=== PATIENT | male | born 1945 | race Caucasian/White ===

== ENCOUNTER 2017-08-28 10:33 | Observation (INO) | payer MEDICARE, OTHER ==
[~2017-08-28] VITALS: Ht 182.9 cm; Wt 117.6 kg
[~2017-08-28 10:33] MED LIST: ADVA500A INH; ASPI325T24 PO; CARV6.25 PO; CITA20TA4 PO; CLOP75 PO; DIOV160T6 PO; DIPH1TAB36 PO; FISH1000 PO; SIMV80TA OR; Saw Palmetto PO; TAB-TAB PO; VITA10002 PO
[2017-08-28 10:54] VITALS: BP 163/88; PULSE 56; RESP 20; TEMP 97.9; O2SAT 95
[2017-08-28] MEDS ORDERED: VITA250T26 PO (10:59)
[2017-08-28] MEDS ORDERED: VITA250T25 PO (10:59)
[2017-08-28] MEDS ORDERED: CITA10TA4 PO (10:59)
[2017-08-28] MEDS ORDERED: CLOP75TA PO (10:59)
[2017-08-28] MEDS ORDERED: CARV6.252 PO (10:59)
[2017-08-28] MEDS ORDERED: FISHCAP4 PO (10:59)
[2017-08-28] MEDS ORDERED: MECL-62 PO (10:59)
[2017-08-28] MEDS ORDERED: RANI150T PO (10:59)
[2017-08-28] MEDS ORDERED: VITATAB25 PO (10:59)
[2017-08-28] MEDS ORDERED: CENTCHW3 (11:09)
[2017-08-28] MEDS ORDERED: CALC1TAB87 PO (11:09)
[2017-08-28] MEDS ORDERED: ASPI81CH CHEW (11:09)
[2017-08-28] MEDS ORDERED: potassium otc PO (11:09)
[2017-08-28] MEDS ORDERED: OCUVTAB PO (11:09)
[2017-08-28] MEDS ORDERED: SAW450CA2 PO (11:09)
[2017-08-28] MEDS ORDERED: SODIUM CHLORID 0.9% 500 ML IV PRN (11:30)
[2017-08-28] MEDS ORDERED: METOPROLOL TARTRATE 25 MG TAB PO PRN (11:30)
[2017-08-28] MEDS ORDERED: LACTATED RINGER'S 1000 ML IV PRN (11:30)
[2017-08-28] MEDS ORDERED: CHLORHEXIDINE GLUCONATE 2 % 1 PACK (2 CLOTHS) TOPICAL PRN (11:30)
[2017-08-28] MEDS ORDERED: POVIDONE IODINE 5% (ANTISEPSIS KIT) 4 APPLICATIONS EACH NARE PRN (11:30)
[2017-08-28] MEDS ORDERED: INSULIN HUMAN REGULAR 1,000 UNITS/10 ML VIAL SQ PRN (11:30)
[2017-08-28 12:00] LABS: BICARBONATE 24.8 MEQ/L (21.0-32.0)
[2017-08-28] MEDS ORDERED: PROPOFOL 200 MG/20 ML AMP IV ONE (12:00)
[2017-08-28] MEDS ORDERED: ONDANSETRON HCL 4 MG/2 ML VIAL IV ONE (12:00)
[2017-08-28] MEDS ORDERED: SODIUM CHLOR 0.9% 1000 ML INJ 1,000 ML IV SCH (12:00)
[2017-08-28] MEDS ORDERED: ceFAZolin 2 GM PREMIX 50 ML IV SCH (12:00)
[2017-08-28] MEDS ORDERED: GLYCOPYRROLATE 1 MG/5 ML SYRINGE IV PUSH ONE (12:00)
[2017-08-28] MEDS ORDERED: ROCURONIUM INJ 50 MG/5 ML SYRINGE IV PUSH ONE (12:00)
[2017-08-28] MEDS ORDERED: NEOSTIGMINE 3 MG/3 ML SYR IV ONE (12:00)
[2017-08-28] MEDS ORDERED: PHENYLEPH/NS 1000 MCG/10 ML SYR IV ONE (12:00)
[2017-08-28] MEDS ORDERED: LIDOCAINE HCL 1% PF 5 ML AMPULE OTHER ONE (12:00)
[2017-08-28] MEDS ORDERED: ePHEDrine/NS 25 MG/5 ML SYR IV ONE (12:00)
[2017-08-28 12:04] LABS: POTASSIUM 4.4 MEQ/L (3.5-5.1)
[2017-08-28] MEDS ORDERED: LIDOCAINE HCL 1% 20 ML VIAL ONE (13:15)
--- NOTE | 2017-08-28 13:39 | EKG ---
Date Performed: 08/28/2017 Time Performed: 11:11:11 PTAGE: 72 years EKG: Sinus rhythm WITH SINUS ARRHYTHMIA BORDERLINE LEFT AXIS DEVIATION MODERATE INTRAVENTRICULAR CONDUCTION DELAY BORD GARCÍA ECG PREVIOUS TRACING : 08/31/2011 14.42 DOCTOR: Jimbo Goins Interpretating Date/Time 08/28/2017 13:38:03
[2017-08-28] MEDS ORDERED: DO NOT ADM ANY ANTICOAGULANT DRUGS PRN (15:26)
--- NOTE | 2017-08-28 17:12 | PD.RAD ---
Post CT Procedure Prog Note Pre Procedure Diagnosis: (1) Left renal mass Post Procedure Diagnosis: (1) Left renal mass Procedure Date: Aug 28, 2017 Supervising Radiologist: Mike Hillman Anesthesia: General Plan of Activity Patient to Unit: PACU Patient Condition: Good See PACS Report for procedural detail/treatment Biopsy Imaging Guidance: CT Side: Left Biopsy Procedure: Kidney (20 gauge core and cryo) Specimen: Core Biopsy Findings: Colon against mass. with saline injection through Bender blunt. Mike Hillman MD Aug 28, 2017 17:12
[2017-08-28] MEDS ORDERED: ACETAMINOPHEN 500 MG CPLT PO PRN (18:15)
[2017-08-28] MEDS ORDERED: MECLIZINE HCL 25 MG TAB PO PRN (18:15)
[2017-08-28] MEDS ORDERED: MORPHINE SULFATE 4 MG/ML INJ IV PUSH PRN (18:15)
[2017-08-28] MEDS ORDERED: PILL SPLITTER OTHER PRN (19:15)
[2017-08-28 20:00] VITALS: BP 150/73; PULSE 62; RESP 18; TEMP 97.8; O2SAT 97
[2017-08-28] MEDS: oxyCODONE/ACETAMINOPHEN 5 MG/325 MG TAB PO PRN (20:47)
[2017-08-28 22:05] LABS: AUTOMATED NEUTROPHIL # 7.6 TH/MM3 (1.8-7.7); BASOPHIL % 0.2 % (0.0-2.0); EOSINOPHIL % 0.4 % (0.0-4.0); HEMATOCRIT 41.2 % (39.0-51.0); HEMO FLAGS DIFF FINAL; LYMPH % 12.4 % (9.0-44.0); LYMPHOCYTE # 1.2 TH/MM3 (1.0-4.8); MEAN CELL VOLUME 90.1 FL (80.0-100.0); MEAN CORPUSCULAR HEMOGLOBIN 30.3 PG (27.0-34.0); MEAN CORPUSCULAR HGB CONC 33.7 % (32.0-36.0); MONO % 6.3 % (0.0-8.0); NEUT % 80.7 % (16.0-70.0); PLATELET COUNT 224 TH/MM3 (150-450); RED BLOOD COUNT 4.58 MIL/MM3 (4.50-5.90); RED CELL DISTRIBUTION WIDTH 14.7 % (11.6-17.2); WHITE BLOOD COUNT 9.4 TH/MM3 (4.0-11.0)
[2017-08-29] VITALS: BP 120/55; PULSE 57; RESP 20; TEMP 98.3; O2SAT 94
--- NOTE | 2017-08-29 00:15 | HHI.HP ---
HPI Service [facility] Primary Care Physician Non-Staff Admission Diagnosis Diagnoses: Chief Complaint: Post procedure observation Travel History International Travel<30 Days: No Contact w/Intl Traveler <30 Da: No Traveled to Known Affected Are: No History of Present Illness Patient was seen this morning on 08/29/2017 around 9:30AM. Mr. Gunter is a 72 year old male with a history of hypertension, Prostate cancer, CAD s/p 3 stents who underwent left renal biopsy and cryoablation on by interventional radiology. Patient was admitted for observation to address any post-procedure issues, pain management. Since 2008, patient has been under imaging surveillance for a slow growing mass located posterolaterally in the inferior left renal pole. 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 At the time of this interview, patient is doing well. No significant pain from left flank area. However, he reports a right sided chest discomfort, pressure like sensation. He denies any nausea, vomiting, diaphoresis. No radiation of chest pain. He reports that recently, at home he is making a shade and has been using right upper extremity quite a bit. Review of Systems Except as stated in HPI: all other systems reviewed are Neg Past Family Social History Past Medical History CAD s/p 3 stents Prostate cancer Past Surgical History Back surgery Foot surgery Allergies: Coded Allergies: No Known Allergies (Verified , 08/28/17) Family History Mother and father had DM, Heart disease. Social History Denies using tobacco or illicit drugs. Drinks alcohol socially. Physical Exam Vital Signs Vital Signs Date Time Temp Pulse Resp B/P (MAP) Pulse Ox O2 Delivery O2 Flow Rate FiO2 08/28/17 20:55 Room Air 08/28/17 20:00 97.8 62 18 150/73 (98) 97 08/28/17 17:00 97.5 61 14 141/65 (90) 95 Room Air 08/28/17 16:30 62 14 125/62 (83) 97 Room Air 08/28/17 16:15 65 18 127/59 (81) 95 Nasal Cannula 2 08/28/17 16:00 66 18 120/56 (77) 96 Nasal Cannula 2 08/28/17 15:45 69 18 114/55 (74) 96 Nasal Cannula 2 08/28/17 15:31 97.7 71 18 106/51 (69) 97 Nasal Cannula 2 08/28/17 11:03 95 Room Air 08/28/17 10:54 97.9 56 20 163/88 (113) 95 Physical Exam GENERAL: This is a well-nourished, well-developed patient, in no apparent distress. SKIN: No rashes, ecchymoses or lesions. Warm and dry. HEAD: Atraumatic. Normocephalic. No temporal or scalp tenderness. EYES: Pupils equal round and reactive. No injection or drainage. ENT: Nose without bleeding, purulent drainage or septal hematoma. Airway patent. NECK: Trachea midline. No lymphadenopathy. Supple, nontender, no meningeal signs. CARDIOVASCULAR: Regular rate and rhythm without murmurs, gallops, or rubs. No JVD. No chest wall tenderness on palpation. RESPIRATORY: Clear to auscultation. Breath sounds equal bilaterally. No wheezes , rales, or rhonchi. GASTROINTESTINAL: Abdomen soft, non-tender, nondistended. No guarding. Left flank area looks unremarkable. Biopsy area is covered with dressing. MUSCULOSKELETAL: Extremities without clubbing, cyanosis, or edema. NEUROLOGICAL: Awake and alert. Cranial nerves II through XII intact. No focal neurological deficits. Normal speech. Laboratory Laboratory Tests Test 08/28/17 11:08 08/28/17 21:49 Blood Urea Nitrogen 13 Creatinine 0.64 Random Glucose 92 Calcium Level 8.6 Sodium Level 140 Potassium Level 4.4 Chloride Level 109 Carbon Dioxide Level 24.8 Anion Gap 6 Estimat Glomerular Filtration Rate 123 White Blood Count 9.4 Red Blood Count 4.58 Hemoglobin 13.9 Hematocrit 41.2 Mean Corpuscular Volume 90.1 Mean Corpuscular Hemoglobin 30.3 Mean Corpuscular Hemoglobin Concent 33.7 Red Cell Distribution Width 14.7 Platelet Count 224 Mean Platelet Volume 7.9 Neutrophils (%) (Auto) 80.7 Lymphocytes (%) (Auto) 12.4 Monocytes (%) (Auto) 6.3 Eosinophils (%) (Auto) 0.4 Basophils (%) (Auto) 0.2 Neutrophils # (Auto) 7.6 Lymphocytes # (Auto) 1.2 Monocytes # (Auto) 0.6 Eosinophils # (Auto) 0.0 Basophils # (Auto) 0.0 CBC Comment DIFF FINAL Differential Comment Result Diagram: 08/28/17 2149 08/28/17 1108 Imaging Last Impressions Chest X-Ray 08/29/17 0000 Signed Impressions: Service Date/Time: August 10:35 - CONCLUSION: No acute disease. No significant change has occurred. Dong Ayala MD Caprintheresa VTE Risk Assessment Caprini VTE Risk Assessment: No/Low Risk (score <= 1) Caprini Risk Assessment Model Point Value = 1 Point Value = 2 Point Value = 3 Point Value = 5 Age 41-60 Minor surgery BMI > 25 kg/m2 Swollen legs Varicose veins or History of unexplained or recurrent spontaneous Oral contraceptives or hormone replacement Sepsis (< 1 month) Serious lung disease, including pneumonia (< 1 month) Abnormal pulmonary function Acute myocardial infarction Congestive heart failure (< 1 month) History of inflammatory bowel disease Medical patient at bed rest Age 61-74 Arthroscopic surgery Major open surgery (> 45 min) Laparoscopic surgery (> 45 min) Malignancy Confined to bed (> 72 hours) Immobilizing plaster cast Central venous access Age >= 75 History of VTE Family history of VTE Factor V Leiden Prothrombin [id number] Lupus anticoagulant Anticardiolipin antibodies Elevated serum homocysteine Heparin-induced thrombocytopenia Other congenital or acquired thrombophilia Stroke (< 1 month) Elective arthroplasty Hip, pelvis, or leg fracture Acute spinal cord injury (< 1 month) Prophylaxis Regimen Total Risk Factor Score Risk Level Prophylaxis Regimen 0-1 Low Early ambulation 2 Moderate Order ONE of the following: *Sequential Compression Device (SCD) *Heparin 5000 units SQ BID 3-4 Higher Order ONE of the following medications: *Heparin 5000 units SQ TID *Enoxaparin/Lovenox 40 mg SQ daily (WT < 150 kg, CrCl > 30 mL/min) *Enoxaparin/Lovenox 30 mg SQ daily (WT < 150 kg, CrCl > 10-29 mL/min) *Enoxaparin/Lovenox 30 mg SQ BID (WT < 150 kg, CrCl > 30 mL/min) AND/OR *Sequential Compression Device (SCD) 5 or more Highest Order ONE of the following medications: *Heparin 5000 units SQ TID (Preferred with Epidurals) *Enoxaparin/Lovenox 40 mg SQ daily (WT < 150 kg, CrCl > 30 mL/min) *Enoxaparin/Lovenox 30 mg SQ daily (WT < 150 kg, CrCl > 10-29 mL/min) *Enoxaparin/Lovenox 30 mg SQ BID (WT < 150 kg, CrCl > 30 mL/min) AND *Sequential Compression Device (SCD) Assessment and Plan Problem List: (1) Left renal mass ICD Code: N28.89 - Other specified disorders of kidney and ureter Assessment and Plan Mr Gunter is a pleasant 72 year old male who underwent left renal biopsy and cryoablation due to a slow growing mass of the left renal inferior pole. Post procedure, hospitalist service was consulted to admit patient for 23 hour observation. I discussed with IR on 08/28/2017. - Left renal mass - s/p biopsy and cryoablation - Pathology pending. - Acetaminophen, Percocet, Morphine IV for pain control. - Hypertension - Patient had one episode of slightly elevated BP. Goal BP < 150/90. No need for any anti-hypertensives at this point. - Right sided chest discomfort - CAD s/p 3 stents - last one placed about 3 years ago. - Given patient's history of CAD and 3 stents, we will work him for chest pain. - CXR showed no acute abnormality. EKG unremarkable. Troponin negative X 2. - Upon discharge, patient can continue home meds including aspirin, Plavix. He follows up with a scale operator in [place] (Dr. Cruz). Full code. Demetrio Arroyo DO Aug 29, 2017 00:15
[2017-08-29 03:52] LABS: AUTOMATED NEUTROPHIL # 4.6 TH/MM3 (1.8-7.7); BASOPHIL % 0.3 % (0.0-2.0); EOSINOPHIL # 0.1 TH/MM3 (0-0.4); EOSINOPHIL % 1.5 % (0.0-4.0); HEMATOCRIT 38.5 % (39.0-51.0); HEMO FLAGS DIFF FINAL; MEAN CELL VOLUME 90.4 FL (80.0-100.0); MEAN CORPUSCULAR HEMOGLOBIN 30.6 PG (27.0-34.0); MEAN CORPUSCULAR HGB CONC 33.8 % (32.0-36.0); MONO % 7.8 % (0.0-8.0); NEUT % 74.4 % (16.0-70.0); PLATELET COUNT 192 TH/MM3 (150-450); RED BLOOD COUNT 4.26 MIL/MM3 (4.50-5.90); RED CELL DISTRIBUTION WIDTH 14.4 % (11.6-17.2); WHITE BLOOD COUNT 6.1 TH/MM3 (4.0-11.0)
[2017-08-29 04:00] VITALS: BP 130/59; PULSE 80; RESP 20; TEMP 97.9; O2SAT 97
[2017-08-29 08:00] VITALS: BP 143/67; PULSE 58; RESP 16; TEMP 98.2; O2SAT 95
[2017-08-29] MEDS ORDERED: CITALOPRAM HYDROBROMIDE 20 MG TAB PO SCH (09:00)
[2017-08-29] MEDS ORDERED: CARVEDILOL 6.25 MG TAB PO SCH (09:00)
[2017-08-29] MEDS ORDERED: FAMOTIDINE 20 MG TAB PO SCH (09:00)
[2017-08-29] MEDS: oxyCODONE/ACETAMINOPHEN 5 MG/325 MG TAB PO PRN (09:25)
[2017-08-29] MEDS ORDERED: INFLUENZA VIRUS VACCINE (QUADRIVALENT) 0.5 ML SYR IM ONE (10:00)
--- NOTE | 2017-08-29 10:07 | RADRPT ---
EXAM DATE/TIME: 08/29/2017 10:35 [facility] COMPARISON: CHEST SINGLE AP, August 31, 2011, 16:10. INDICATIONS : Chest pain. MEDICAL HISTORY : Hypercholesterolemia. Myocardial infarction. Gastroesophageal reflux disease. Hypertension. Asbes tosis. Asthma. Sleep apnea. Ulcer. Skin CA. Arthritis. SURGICAL HISTORY : Cardiac cath w/ stent. Lap band. Back surgery. ENCOUNTER: Subsequent ACUITY: 2 days PAIN SCORE: 1/10 LOCATION: Right chest FINDINGS: Today's exam is compared to the prior study from 2010. There continue to be multiple calcified pleura l plaques bilaterally which appear to be stable. There is chronic interstitial changes throughout bot h lung monroy which are stable. No new or acute pulmonary infiltrates are demonstrated. The heart siz e is mildly enlarged but stable. There are no pleural effusions. The bony structures are stable. No s ignificant changes compared to 2010. CONCLUSION: No acute disease. No significant change has occurred. Dong Ayala MD on August 29, 2017 at 10:05 Board Certified Radiologist. This report was verified electronically.
[2017-08-29 10:08] VITALS: PULSE 69
[2017-08-29] MEDS ORDERED: POTA99TA4 PO (10:44)
[2017-08-29] MEDS ORDERED: ASPIRIN 325 MG TAB PO SCH (10:45)
[2017-08-29] MEDS ORDERED: NITROGLYCERIN 2% OINT 1 GM PACKET TOP SCH (10:45)
[2017-08-29 12:00] VITALS: BP 119/59; PULSE 56; RESP 20; TEMP 97.7; O2SAT 94
[2017-08-29 13:59] LABS: CREATINE KINASE 99 U/L (39-308)
[2017-08-29 16:00] VITALS: BP 144/70; PULSE 53; RESP 16; TEMP 98.1; O2SAT 93
[2017-08-29 16:07] LABS: CREATINE KINASE 99 U/L (39-308)
--- NOTE | 2017-08-29 21:43 | EKG ---
Date Performed: 08/29/2017 Time Performed: 10:38:58 PTAGE: 72 years EKG: Sinus rhythm . Leftward axis Borderline ECG PREVIOUS TRACING 08/28/2017 @ 11.11.11 Compared to prior tracing no significant change DOCTOR: Charly Ferro Interpretating Date/Time 08/29/2017 21:42:27
--- NOTE | 2017-08-30 22:02 | EKG ---
Date Performed: 08/29/2017 Time Performed: 16:00:29 PTAGE: 72 years EKG: Sinus rhythm WITH OCCASIONAL VENTRICULAR PREMATURE COMPLEXES MODERATE INTRAVENTRICULAR CONDUCTION DELAY BORDERLIN E ECG PREVIOUS TRACING : 08/29/2017 10.38 Compared to prior tracing no significant change DOCTOR: Nasim Hartman Interpretating Date/Time 08/30/2017 21:36:59
--- NOTE | 2017-09-02 09:52 | RADRPT ---
EXAM DATE/TIME: 08/28/2017 13:48 INDICATIONS : Left renal mass Anesthesia and pain control was provided by the Anesthesia department. DEVICE(S): 1.) PERC cryoablation probe MEDICAL HISTORY : Cardiovascular disease. SURGICAL HISTORY : Cardiac stents ENCOUNTER: Initial ACUITY: 1 day PAIN SCORE: 0/10 LOCATION: Left PROCEDURE : 1. CT guided cryoablation. Under sterile conditions and using aseptic technique with CT guidance the mass was localized and sati sfactory approach was taken to access the lesion. Using automated exposure control and adjustment of the mA and/or kV according to patient size, radiation dose was kept as low as reasonably achievable to obtain optimal diagnostic quality images. DICOM format image data is available electronically for review and comparison. Shotblast Operator image through the upper abdomen showed bilateral diaphragmatic calcifications characteristic of prior asbestos exposure. Mass lesion of the inferolateral aspect of the left kidney measures 2.3 x 1 .8 cm and abuts up against a loop of colon. Therefore, an 18 gauge Bender blunt needle was positione d between the mass lesion and the adjacent colon. Approximately 120 cc of saline was infused through the outer catheter of the separate the mass from the adjacent colon. The same needle was used as a gu maria ines to perform percutaneous biopsy of the lesion. Minggl Cryoprobes were employed using percutaneous technique employing the prescribed probes. A freeze-thaw, freeze-thaw technique was employed and serial imaging demonstrated an ice ball encomp assing the entire lesion. Post procedure images demonstrate expected postoperative changes without e vidence of hematoma. CONCLUSION: 1. Uncomplicated cryoablation as above. 2. Proximity of the mass to the regional bowel required preprocedural saline infusion to insulate the bowel from cryotherapy Mike Hillman MD on September 02, 2017 at 9:45 Board Certified Radiologist. This report was verified electronically.
--- NOTE | 2017-09-02 09:53 | RADRPT ---
EXAM DATE/TIME: 08/28/2017 13:48 [facility] COMPARISON: No previous studies available for comparison. INDICATIONS : Left renal mass. BIOPSY SITE: Left Anesthesia and pain control was provided by the Anesthesia department. DEVICE(S): 1.) 20 gauge Temno core biopsy needle MEDICAL HISTORY : Cardiovascular disease. SURGICAL HISTORY : Cardiac stent ENCOUNTER: Initial ACUITY: 1 day PAIN SCORE: 0/10 LOCATION: Left A total of one core specimen(s) were obtained and sent to the laboratory for pathologic evaluation. PROCEDURE: 1. CT guided renal biopsy. 2. Conscious sedation with continuous EKG and oximetry monitoring. 3. EKG and oximetry remained stable throughout the procedure. Prior to the procedure informed consent was obtained. Any appropriate prior imaging studies were rev iewed. Using automated exposure control and adjustment of the mA and/or kV according to patient size, radiat ion dose was kept as low as reasonably achievable to obtain optimal diagnostic quality images. DICOM format image data is available electronically for review and comparison. The site was prepped in a sterile fashion. Full sterile technique was used, including cap, mask, trent rile gloves and gown and a large sterile sheet. Hand hygiene and 2% chlorhexidine and/or betadine/al cohol prep was utilized per protocol for cutaneous antisepsis. The skin and subcutaneous tissues wer e infiltrated with local anesthetic solution. With CT guidance the previously identified target was localized. 18 gauge Bender blunt needle was ad vanced to the lesion. Biopsy was performed using the prescribed needle as above. Adequate hemostasis was obtained with compression at the puncture site. Follow-up CT scan reveals no hemorrhage. The patient tolerated the procedure well and there were no complications. The patient was returned to the Radiology Outpatient Unit in stable condition. CONCLUSION: Uncomplicated CT guided biopsy. Mike Hillman MD on September 02, 2017 at 9:50 Board Certified Radiologist. This report was verified electronically.
== END 2017-08-29 18:03 | disposition home or self-care (01) ==
LOC: HROP 10:33 → HRIP 10:33 → HROP 16:36 → N04A 16:37 → N04B 17:30 → N04A 17:38
PROVIDERS: ADMIT Hospitalist; ATTEND Hospitalist
DX: N28.89 Other specified disorders of kidney and ureter (principal); R07.89 Other chest pain; I10 Essential (primary) hypertension; I25.10 Atherosclerotic heart disease of native coronary artery without angina pectoris; Z95.5 Presence of coronary angioplasty implant and graft; Z85.46 Personal history of malignant neoplasm of prostate; Z23 Encounter for immunization; Z77.090 Contact with and (suspected) exposure to asbestos
CPT/HCPCS: 50200; 50593; 71010; 77012; 77013; 80048; 82550; 84484; 85025; 88305; 93005; C2618; G0378; J2370; J2405; J2710; J3010; Q2038; 90686